=== PATIENT | female | born 1975 | race African-American/Black ===

== ENCOUNTER 2017-02-09 03:03 | Inpatient (IN) | payer MEDICARE, MEDICAID ==
[~2017-02-09 03:03] MED LIST: ANTIVERT25 MG PO; COMPAZINE10 M PO; KEFLEX500 MG PO; NO HOME MEDICATION XX; NORCO 5-325 TA1 EACH PO; NORCO 5/325 TAB1 TAB PO; PENICILLIN V P500 M1 PO; VALIUM2 MG PO
[2017-02-09 03:32] LABS: BASO % 0.4 % (0-2); EOS % 3.5 % (0-7); EOSINOPHIL ABSOLUTE COUNT 0.2 tho/cmm (0.0-0.7); HGB-HEMOGLOBIN 10.9 gm/dl (12.0-15.5); LYMPH % 41.6 % (20-45); LYMPH ABSOLUTE COUNT 2.4 tho/cmm (0.8-4.5); MCH (MEAN CORPUSCULAR HGB) 23.1 pg (28.0-32.0); MCV (MEAN CELL VOLUME) 70.1 fl (82.0-96.0); MEAN PLATELET VOLUME 8.6 cmc (9.4-12.4); MONO % 6.9 % (0-12); MONOCYTE ABSOLUTE COUNT 0.4 tho/cmm (0.0-1.2); NEUTROPHIL ABSOLUTE COUNT 2.7 tho/cmm (1.6-8.0); NEUTROPHIL-AUTOMATED 2.7 tho/cmm (1.6-8.0); NEUTROPHILS % 47.6 % (40-80); PLATELET COUNT 251 tho/cmm (150-450); RED BLOOD COUNT 4.71 mil/cmm (4.00-5.20); RED CELL DISTRIBUTION WIDTH 16.2 % (12.4-16.4); WHITE BLOOD COUNT 5.7 tho/cmm (4.0-10.0)
[2017-02-09 03:34] LABS: INR 1.2 INR (0.9-1.1); PROTHROMBIN TIME 13.6 SECONDS (9.0-13.6)
[2017-02-09] MEDS ORDERED: GLUCOPHAGE500 M3 PO (03:44)
[2017-02-09] MEDS ORDERED: ASPIRIN81 M1 CH (03:44)
[2017-02-09] MEDS ORDERED: LISINOPRIL5 M1 PO (03:45)
[2017-02-09 03:48] LABS: ALB/GLOB RATIO 0.9 (0.8-2.0); ALBUMIN 3.3 g/dl (3.5-5.0); ALKALINE PHOSPHATASE 47 U/L (33-138); ALT/SGPT 20 U/L (12-78); ANION GAP 13 mmol/L (0-20); AST/SGOT 10 U/L (10-40); BILIRUBIN,TOTAL 0.2 mg/dl (0-1.5); BLOOD UREA NITROGEN 9 mg/dl (6-24); CALCIUM 8.5 mg/dl (8.5-10.5); CARBON DIOXIDE-VENOUS 22 mmol/L (22-32); CHLORIDE 109 mmol/l (96-110); CREATININE 0.67 mg/dl (0.50-1.10); GLUCOSE 117 mg/dL (70-110); POTASSIUM 3.7 mmol/L (3.7-5.1); PREGNANCY-SERUM NEGATIVE (NEGATIVE); SODIUM 140 mmol/L (135-145); eGFR VALUE FOR BLACK >90 mL/Min
[2017-02-09 04:04] LABS: ESR-ERYTHROCYTE SED RATE 16 mm/hr (0-20)
[2017-02-09] MEDS ORDERED: HYDROCODON-ACE1 EA16 PO (04:31)
[2017-02-09] MEDS ORDERED: ATORVASTATIN CA40 M1 PO (04:31)
[2017-02-09] MEDS ORDERED: ULTRAM50 M1 PO (10:27)
--- NOTE | 2017-02-09 14:07 | NUR ---
ROUNDED ON PATIENT AT 1140, WITNESSED PATIENT WALKING HALLWAYS AROUND 1210, CAME TO ROUND OF PATIENT AND STATED SHE WASNT IN HER ROOM AROUND 1230. PAGED PATIENT OVERHEAD TO RETURN TO ROOM. AFTER AN HOUR OF NO RETURN CALLED PATIENTS CELL PHONE TO INSTRUCT HER OF ANY CHANGES IN HER MEDICATIONS AND AMA STATUS. SHE RETURNED THE PHONE CALL BUT HUNG UP SOON I ANSWERED THE PHONE.
== END 2017-02-09 12:30 | disposition left against medical advice (07) | DRG 69 ==
LOC: EDMED 03:03 → EMR2 05:27 → 5EB 06:00
PROVIDERS: Emergency Medicine; Internal Medicine; ADMIT Hospitalist
DX: G45.9 Transient cerebral ischemic attack, unspecified (principal); I69.351 Hemiplegia and hemiparesis following cerebral infarction affecting right dominant side; I10 Essential (primary) hypertension; F17.220 Nicotine dependence, chewing tobacco, uncomplicated; E78.5 Hyperlipidemia, unspecified; M79.662 Pain in left lower leg; Z79.82 Long term (current) use of aspirin; R29.810 Facial weakness; R20.9 Unspecified disturbances of skin sensation; M54.9 Dorsalgia, unspecified; M25.512 Pain in left shoulder; M25.511 Pain in right shoulder; I69.392 Facial weakness following cerebral infarction; Z91.19 Patient's noncompliance with other medical treatment and regimen; E11.9 Type 2 diabetes mellitus without complications; R42 Dizziness and giddiness
CPT/HCPCS: A9577; C8929; G8987-GO-CH; G8988-GO-CH; G8989-GO-CH; J7030